=== PATIENT | female | born 1975 | race African-American/Black ===

== ENCOUNTER 2020-03-10 13:41 | Emergency (ER) | payer OTHER ==
[~2020-03-10] VITALS: Ht 165.1 cm; Wt 63.5 kg
[2020-03-10] MEDS ORDERED: SODIUM CHLORIDE 0.9% 1,000 ML IV ONE ×2 (15:00→16:15)
[2020-03-10] MEDS ORDERED: cloNIDine HCL 0.1 MG TAB PO ONE (15:00)
[2020-03-10 15:24] LABS: Urine Bacteria NONE SEEN /hpf (None Seen); Urine Blood Negative /uL (Negative); Urine Specific Gravity 1.035 (1.001-1.035); Urine WBC <1 /hpf (0 - 5)
[2020-03-10 15:33] LABS: Basophils # (auto) 0.1 10 ^3/uL (0-0.2); Eosinophils # (auto) 0.1 10 ^3/uL (0-0.8); Eosinophils % (auto) 1.7 % (0.0-7.0); Hematocrit 41.2 % (36.0-46.0); Lymphocytes # (auto) 1.8 10 ^3/uL (0.4-5.4); Monocytes # (auto) 0.3 10 ^3/uL (0-1.3); Nucleated Red Blood Cells % 0.2 %
[2020-03-10 15:35] LABS: Basophils % (auto) 1.1 % (0.0-2.0); Hemoglobin 13.7 g/dL (12.2-16.2); Lymphocytes % (auto) 33.8 % (10.0-50.0); Mean Corpuscular Hgb Conc. 33.4 g/dL (32.0-36.0); Mean Corpuscular Volume 77.8 fL (80.0-100.0); Neutrophils # (auto) 3.1 10 ^3/uL (1.6-8.6); Neutrophils % (auto) 57.4 % (37.0-80.0); Platelet Count (auto) 204 10^3/uL (140-450); Red Blood Cells 5.29 10^6/uL (4.0-5.20); Red Cell Distribution Width 12.6 % (11.8-14.3); White Blood Cell 5.4 10^3/uL (4.4-10.8)
[2020-03-10 15:49] LABS: Albumin 3.6 g/dL (3.4-5.0); Calcium 8.8 mg/dL (8.5-10.1); Potassium 3.8 mmol/L (3.5-5.1)
[2020-03-10 15:52] LABS: BUN/Creatinine Ratio 14.7; Bilirubin, Total 0.3 mg/dL (0.2-1.0); Total Protein 7.9 g/dL (6.4-8.2)
[2020-03-10] MEDS ORDERED: InsuLIN REG 1unit/0.01ml Soln (100units/ml) IV ONE (16:00)
[2020-03-10] MEDS ORDERED: POTASSIUM CHL 20 Meq TABLET PO ONE (16:00)
[2020-03-10 16:49] VITALS: BP 164/100
== END 2020-03-10 17:43 | disposition home or self-care (01) ==
LOC: ER 13:41
DX: M54.42 Lumbago with sciatica, left side (principal); E11.65 Type 2 diabetes mellitus with hyperglycemia; I10 Essential (primary) hypertension
CPT/HCPCS: 36415; 80053; 81001; 81025; 85025; 96361; 96374; 99283; J1815

== ENCOUNTER 2020-05-05 14:41 | Inpatient (IN) | payer OTHER ==
[~2020-05-05] VITALS: Ht 167.6 cm; Wt 68.5 kg
[2020-05-05] MEDS ORDERED: cloNIDine HCL 0.1 MG TAB PO ONE (15:30)
[2020-05-05 15:50] LABS: Basophils # (auto) 0.1 10 ^3/uL (0-0.2); Eosinophils % (auto) 0.5 % (0.0-7.0); Hemoglobin 14.7 g/dL (12.2-16.2); Lymphocytes # (auto) 1.2 10 ^3/uL (0.4-5.4); Nucleated Red Blood Cells % 0.2 %
[2020-05-05 15:52] LABS: Basophils % (auto) 0.7 % (0.0-2.0); Eosinophils # (auto) 0 10 ^3/uL (0-0.8); Hematocrit 45.4 % (36.0-46.0); Lymphocytes % (auto) 11.6 % (10.0-50.0); Mean Corpuscular Hemoglobin 25.3 pg (28.0-32.0); Mean Corpuscular Hgb Conc. 32.3 g/dL (32.0-36.0); Mean Corpuscular Volume 78.2 fL (80.0-100.0); Monocytes # (auto) 0.4 10 ^3/uL (0-1.3); Monocytes % (auto) 3.5 % (0.0-12.0); Neutrophils # (auto) 8.7 10 ^3/uL (1.6-8.6); Neutrophils % (auto) 83.7 % (37.0-80.0); Platelet Count (auto) 188 10^3/uL (140-450); Red Blood Cells 5.81 10^6/uL (4.0-5.20); Red Cell Distribution Width 13.2 % (11.8-14.3); White Blood Cell 10.4 10^3/uL (4.4-10.8)
[2020-05-05 16:11] LABS: Albumin 4.3 g/dL (3.4-5.0); Anion Gap 4 (5-15); Blood Urea Nitrogen 13 mg/dL (7-18); Calcium 9.2 mg/dL (8.5-10.1); Carbon Dioxide 28 mmol/L (21-32); Chloride 100 mmol/L (98-107); Glucose 323 mg/dL (74-106); Potassium 5.2 mmol/L (3.5-5.1); Sodium 132 mmol/L (136-145)
[2020-05-05 16:16] LABS: Alanine Aminotransferase 29 U/L (13-56); Alkaline Phosphatase 123 U/L (45-117); Aspartate Aminotransferase 57 U/L (15-37); BUN/Creatinine Ratio 11.4; Bilirubin, Total 0.5 mg/dL (0.2-1.0); GFR African American 67 mL/min; GFR Non-African American 56 mL/min; Total Protein 9.3 g/dL (6.4-8.2)
[2020-05-05] MEDS ORDERED: CALCIUM GLUC 4.65meq/50ml D5AE 50 ML IV ONE (18:45)
[2020-05-05] MEDS ORDERED: SODIUM ZIRCONIUM CYCL 10 GM PAK PO ONE (18:45)
[2020-05-05] MEDS ORDERED: SODIUM BICARBONATE 8.4% INJ 50ML SYRINGE IV ONE (18:45)
[2020-05-05 19:19] LABS: Urine Specific Gravity 1.031 (1.001-1.035)
[2020-05-05 19:20] LABS: Urine Bacteria NONE SEEN /hpf (None Seen); Urine Blood Negative /uL (Negative)
[2020-05-05 19:30] LABS: Urine WBC None Seen /hpf (0 - 5)
[2020-05-05] MEDS ORDERED: MORPHINE SULF INJ 2 MG/ML SYRINGE 1ML IV PRN (19:30)
[2020-05-05] MEDS ORDERED: PROMETHAZINE HCL 25 MG/ML 1ML IV PRN (19:30)
[2020-05-05] MEDS ORDERED: DEXTROSE (50%) 50ML SYRG IV PRN (19:30)
[2020-05-05] MEDS ORDERED: amLODIPine BESYLATE 5 MG TAB PO ONE (19:30)
[2020-05-05] MEDS ORDERED: traMADol HCL 50 MG TAB PO PRN (19:30)
[2020-05-05] MEDS ORDERED: LABETALOL HCL 5 MG/ML ML 20ML VIAL IV PRN (19:30)
[2020-05-05] MEDS ORDERED: NITROGLYCERIN 0.4 MG SL TAB SL PRN (19:30)
[2020-05-05] MEDS ORDERED: TEMAZEPAM 15 MG CAP PO PRN (19:30)
[2020-05-05] MEDS ORDERED: LACTULOSE 20Gm/30ML SOLN PO PRN (19:30)
[2020-05-05] MEDS ORDERED: ACETAMINOPHEN 500 MG TAB PO PRN (19:30)
[2020-05-05 19:59] LABS: CRP High Sensitivity 0.52 mg/dL (< 0.3)
[2020-05-05 20:22] LABS: Alcohol, Urine < 3.0 mg/dL (0-10); Amphetamine Screen, Urine NEGATIVE (NEGATIVE); Barbiturate Scree,Urine NEGATIVE (NEGATIVE); Benzodiazephine Screen, Urine NEGATIVE (NEGATIVE); Cannabinoid Screen, Urine NEGATIVE (NEGATIVE); Cocaine Screen, Urine NEGATIVE (NEGATIVE); Opiate Scree,Urine NEGATIVE (NEGATIVE); Phencyclidine Screen, Urine NEGATIVE (NEGATIVE)
[2020-05-05] MEDS: ACCU-CHEK COMFORT CURVE STRIP VI SCH ×2 (22:00→23:28)
[2020-05-05] MEDS ORDERED: ATORVASTATIN 20 MG TAB PO SCH (22:00)
[2020-05-05] MEDS: InsuLIN REG 1unit/0.01ml Soln (100units/ml) SC SCH ×2 (22:39→23:17)
[2020-05-05 22:45] VITALS: BP 149/89
[2020-05-05 23:03] VITALS: BP 144/89
[2020-05-05] MEDS: METOPROLOL TARTRATE 25 MG TAB PO SCH (23:10)
[2020-05-05] MEDS ORDERED: INSULIN LANTUS (GLARGINE) 1 /0.01ml (100units/ml) SC ONE (23:15)
[2020-05-05] MEDS ORDERED: LISI-646 PO (23:32)
[2020-05-05] MEDS ORDERED: METF-489 PO (23:32)
[2020-05-06] MEDS: ACCU-CHEK COMFORT CURVE STRIP VI SCH ×5 (03:59→20:00)
[2020-05-06] MEDS: InsuLIN REG 1unit/0.01ml Soln (100units/ml) SC SCH ×5 (03:59→20:00)
[2020-05-06] MEDS: MORPHINE SULF INJ 2 MG/ML SYRINGE 1ML IV PRN ×2 (04:11→08:35)
[2020-05-06 04:43] VITALS: BP 132/69
[2020-05-06 06:20] LABS: Albumin 3.8 g/dL (3.4-5.0); Anion Gap 7 (5-15); Blood Urea Nitrogen 17 mg/dL (7-18); Calcium 8.9 mg/dL (8.5-10.1); Carbon Dioxide 30 mmol/L (21-32); Chloride 100 mmol/L (98-107); Glucose 139 mg/dL (74-106); Sodium 137 mmol/L (136-145)
[2020-05-06 06:28] LABS: Alanine Aminotransferase 22 U/L (13-56); Alkaline Phosphatase 104 U/L (45-117); Aspartate Aminotransferase 10 U/L (15-37); BUN/Creatinine Ratio 16.2; Bilirubin, Total 0.4 mg/dL (0.2-1.0); Cholesterol 189 mg/dL (< 200); GFR African American 74 mL/min; GFR Non-African American 61 mL/min; HDL Cholesterol 58 mg/dL (40-59); LDL Cholesterol 121 mg/dL (< 100); Total Protein 7.7 g/dL (6.4-8.2); Triglycerides 133 mg/dL (< 150)
[2020-05-06 06:32] LABS: Potassium 2.6 mmol/L (3.5-5.1)
[2020-05-06] MEDS: POTASSIUM CHL 20MEQ/100ML 100 ML IV SCH ×2 (06:53→09:46)
[2020-05-06 09:00] VITALS: BP 152/88
[2020-05-06] MEDS: METOPROLOL TARTRATE 25 MG TAB PO SCH (09:46)
[2020-05-06] MEDS ORDERED: ENALAPRIL MALEATE 10 MG TAB PO SCH (10:00)
[2020-05-06] MEDS ORDERED: INSULIN LANTUS (GLARGINE) 1 /0.01ml (100units/ml) SC SCH ×2 (10:00→22:00)
[2020-05-06] MEDS ORDERED: ASPirin 81 mg TAB PO SCH (10:00)
[2020-05-06] MEDS ORDERED: amLODIPine BESYLATE 5 MG TAB PO SCH (10:00)
[2020-05-06] MEDS ORDERED: ENOXAPARIN SOD 40 MG/0.4 ML SYRINGE SC SCH (10:00)
[2020-05-06 13:00] VITALS: BP 142/90
[2020-05-06 14:16] LABS: Magnesium 2.3 mg/dL (1.6-2.6); Potassium 3.7 mmol/L (3.5-5.1)
[2020-05-06 16:41] VITALS: BP 148/85
[2020-05-06] MEDS ORDERED: METF-489 PO (18:36)
[2020-05-06] MEDS ORDERED: POTA10TA32 PO (18:36)
[2020-05-06] MEDS ORDERED: AML5T PO (18:36)
[2020-05-06] MEDS ORDERED: MET25T PO (18:36)
[2020-05-06] MEDS ORDERED: ASPI81CH43 PO (18:36)
[2020-05-06 19:39] VITALS: BP 126/73
[2020-05-06 20:00] VITALS: BP 126/73
[2020-05-07] MEDS ORDERED: METF-489 PO (12:01)
== END 2020-05-06 21:45 | disposition home or self-care (01) | DRG 199 ==
LOC: ER 14:41 → TELE 14:42 → TELE-WESTW 22:53
PROVIDERS: ADMIT Internal Medicine; ATTEND Internal Medicine
DX: I16.0 Hypertensive urgency (principal); I16.1 Hypertensive emergency; E11.65 Type 2 diabetes mellitus with hyperglycemia; E78.5 Hyperlipidemia, unspecified; E87.1 Hypo-osmolality and hyponatremia; E87.5 Hyperkalemia; E87.6 Hypokalemia; I10 Essential (primary) hypertension; Z79.899 Other long term (current) drug therapy; Z82.49 Family history of ischemic heart disease and other diseases of the circulatory system; Z83.3 Family history of diabetes mellitus; Z86.73 Personal history of transient ischemic attack (TIA), and cerebral infarction without residual deficits; Z91.19 Patient's noncompliance with other medical treatment and regimen; Z79.84 Long term (current) use of oral hypoglycemic drugs; Z88.5 Allergy status to narcotic agent; I07.1 Rheumatic tricuspid insufficiency
CPT/HCPCS: 36415; 70450; 71045; 80053; 80061; 80307; 81001; 82550; 82962; 83036; 83735; 83880; 84132; 84443; 84484; 85025; 85652; 86141; 93005; 93306; 93886; G0378; J0610; J1815; J3480

== ENCOUNTER 2024-03-11 09:50 | Inpatient (IN) | payer MEDICAID, OTHER ==
[~2024-03-11] VITALS: Ht 157.5 cm; Wt 65.6 kg
[~2024-03-11 09:50] MED LIST: AML5T PO; ASPI81CH43 PO; LISI20TA56 PO; MET25T PO; METF-489 PO
[2024-03-11 10:07] VITALS: PULSE 93; RESP 11; O2SAT 93
[2024-03-11 10:22] LABS: Basophils # (auto) 0.1 10 ^3/uL (0-0.2); Basophils % (auto) 1.1 % (0.0-2.0); Eosinophils # (auto) 0.2 10 ^3/uL (0-0.8); Hemoglobin 13.5 g/dL (12.2-16.2); Red Cell Distribution Width 13.7 % (11.8-14.3)
[2024-03-11 10:25] LABS: Eosinophils % (auto) 2.9 % (0.0-7.0); Hematocrit 40.5 % (36.0-46.0); Lymphocytes # (auto) 3.8 10 ^3/uL (0.4-5.4); Lymphocytes % (auto) 48.4 % (10.0-50.0); Mean Corpuscular Hemoglobin 26.8 pg (28.0-32.0); Mean Corpuscular Hgb Conc. 33.4 g/dL (32.0-36.0); Mean Corpuscular Volume 80.1 fL (80.0-100.0); Monocytes # (auto) 0.6 10 ^3/uL (0-1.3); Monocytes % (auto) 7.7 % (0.0-12.0); Neutrophils # (auto) 3.2 10 ^3/uL (1.6-8.6); Neutrophils % (auto) 39.9 % (37.0-80.0); Nucleated Red Blood Cells % 0.2 %; Red Blood Cells 5.06 10^6/uL (4.0-5.20); White Blood Cell 7.9 10^3/uL (4.4-10.8)
[2024-03-11 10:36] LABS: Alanine Aminotransferase 26 U/L (7-40); Albumin 4.5 g/dL (3.2-4.8); Alkaline Phosphatase 129 U/L (46-116); Anion Gap 10 (5-15); Aspartate Aminotransferase 20 U/L (13-40); BUN/Creatinine Ratio 15.2 (10.0-20.0); Blood Urea Nitrogen 24 mg/dL (9-23); Calcium 9.8 mg/dL (8.7-10.4); Carbon Dioxide 26 mmol/L (20-30); Chloride 102 mmol/L (98-107); Glucose 324 mg/dL (74-106); Magnesium 2.1 mg/dL (1.6-2.6); Potassium 3.8 mmol/L (3.5-5.1); Sodium 138 mmol/L (136-145)
[2024-03-11 10:37] LABS: Bilirubin, Total 0.6 mg/dL (0.2-1.0); Total Protein 7.9 g/dL (5.7-8.2)
[2024-03-11] MEDS: IOHEXOL 350 MG/ML 100ML IJ ONE (10:37)
[2024-03-11] MEDS: hydrALAZINE HCL 20 MG/ML VL IV ONE ×2 (10:39→11:53)
[2024-03-11 10:40] LABS: INR 1.03 (0.9-1.15); Partial Thromboplastin Time 24.5 SEC (24.5-34.5); Prothrombin Time 10.9 sec (9.3-11.8)
[2024-03-11] MEDS: LISINOPRIL 5 MG TAB PO ONE (10:40)
[2024-03-11 11:17] LABS: Triglycerides 117 mg/dL (< 150)
[2024-03-11 11:18] LABS: LDL Cholesterol 167 mg/dL (< 100)
[2024-03-11 11:19] LABS: Cholesterol 255 mg/dL (< 200); HDL Cholesterol 61 mg/dL (40-59)
[2024-03-11 11:20] LABS: Giant Platelets Few; Platelet Estimate Adequate
[2024-03-11 11:34] LABS: Urine Bacteria None Seen /hpf (None Seen)
[2024-03-11] MEDS: CLOPIDOGREL BISULFATE 75 MG TAB PO ONE (11:51)
[2024-03-11] MEDS: ASPirin 325 MG TAB PO ONE (11:51)
[2024-03-11] MEDS: cloNIDine HCL 0.1 MG TAB PO ONE (11:52)
[2024-03-11 11:55] LABS: Urine Blood Negative /uL (Negative); Urine Clarity Clear (Clear); Urine Color Light-Yellow (Yellow); Urine Protein, UAD 1+ (Negative); Urine Specific Gravity 1.022 (1.001-1.035); Urine Urobilinogen Normal (Negative); Urine WBC 1 /hpf (0 - 5)
[2024-03-11] MEDS ORDERED: ACETAMINOPHEN 325 MG TAB PO PRN (12:00)
[2024-03-11] MEDS ORDERED: MORPHINE SULFATE INJ 2 MG/ml SYRG IV PRN (12:00)
[2024-03-11] MEDS ORDERED: NITROGLYCERIN 0.4 MG SL TAB SL PRN (12:00)
[2024-03-11] MEDS ORDERED: DEXTROSE (50%) 50ML SYRG IV PRN (12:15)
[2024-03-11] MEDS: SODIUM CHLORIDE 0.9% 1,000 ML IV SCH (13:35)
[2024-03-11] MEDS: ACCU-CHEK COMFORT CURVE STRIP VI SCH (17:03)
[2024-03-11] MEDS: InsuLIN REG 1unit/0.01ml Soln (100units/ml) SC SCH (17:04)
[2024-03-11 17:41] VITALS: BP 168/92; PULSE 98; RESP 18; TEMP 98.5; O2SAT 94
[2024-03-11 18:50] VITALS: RESP 17; O2SAT 99
[2024-03-11 20:00] VITALS: PULSE 100; PULSE 98; RESP 20; O2SAT 96
[2024-03-11 21:00] VITALS: BP 187/105; PULSE 100; RESP 20; TEMP 98.4; O2SAT 96
[2024-03-11] MEDS: METOPROLOL TARTRATE 25 MG TAB PO SCH (21:26)
[2024-03-11] MEDS: CLOPIDOGREL BISULFATE 75 MG TAB PO SCH (23:45)
[2024-03-11] MEDS ORDERED: LABETALOL HCL 20 MG/4 ML VL IV PRN (23:45)
[2024-03-12] VITALS (9 sets, daily range): BP systolic 177–203; BP diastolic 60–103; PULSE 64–97; RESP 14–20; TEMP 97.4–99.3; O2SAT 94–99
[2024-03-12 00:23] LABS: Amphetamine Screen, Urine Neg (NEGATIVE); Barbiturate Scree,Urine Neg (NEGATIVE); Benzodiazephine Screen, Urine Neg (NEGATIVE); Cannabinoid Screen, Urine Neg (NEGATIVE); Cocaine Screen, Urine Neg (NEGATIVE); Opiate Scree,Urine Neg (NEGATIVE); Phencyclidine Screen, Urine Neg (NEGATIVE)
[2024-03-12 06:33] LABS: Alanine Aminotransferase 19 U/L (7-40); Albumin 3.8 g/dL (3.2-4.8); Alkaline Phosphatase 108 U/L (46-116); Anion Gap 10 (5-15); Aspartate Aminotransferase 14 U/L (13-40); BUN/Creatinine Ratio 8.5 (10.0-20.0); Blood Urea Nitrogen 14 mg/dL (9-23); Calcium 9.5 mg/dL (8.7-10.4); Carbon Dioxide 25 mmol/L (20-30); Chloride 104 mmol/L (98-107); Glucose 101 mg/dL (74-106); Potassium 3.2 mmol/L (3.5-5.1); Sodium 139 mmol/L (136-145)
[2024-03-12 06:34] LABS: Bilirubin, Total 0.7 mg/dL (0.2-1.0); Total Protein 7.3 g/dL (5.7-8.2)
[2024-03-12 07:57] LABS: Basophils # (auto) 0.1 10 ^3/uL (0-0.2); Basophils % (auto) 0.7 % (0.0-2.0); Eosinophils # (auto) 0.1 10 ^3/uL (0-0.8); Eosinophils % (auto) 0.5 % (0.0-7.0); Hematocrit 40.4 % (36.0-46.0); Hemoglobin 13.5 g/dL (12.2-16.2); Lymphocytes # (auto) 2.7 10 ^3/uL (0.4-5.4); Lymphocytes % (auto) 25.4 % (10.0-50.0); Mean Corpuscular Hemoglobin 26.8 pg (28.0-32.0); Mean Corpuscular Hgb Conc. 33.4 g/dL (32.0-36.0); Mean Corpuscular Volume 80.2 fL (80.0-100.0); Monocytes # (auto) 0.5 10 ^3/uL (0-1.3); Monocytes % (auto) 5.1 % (0.0-12.0); Neutrophils # (auto) 7.1 10 ^3/uL (1.6-8.6); Neutrophils % (auto) 68.3 % (37.0-80.0); Red Blood Cells 5.04 10^6/uL (4.0-5.20); Red Cell Distribution Width 13.7 % (11.8-14.3); White Blood Cell 10.4 10^3/uL (4.4-10.8)
[2024-03-12] MEDS: LISINOPRIL 20 MG TAB PO SCH (09:00)
[2024-03-12] MEDS: ASPirin 81 mg TAB PO SCH (09:00)
[2024-03-12] MEDS: amLODIPine BESYLATE 5 MG TAB PO SCH (09:01)
[2024-03-12] MEDS: ENOXAPARIN SOD 40 MG/0.4 ML SYRINGE SC SCH (09:02)
[2024-03-12 09:10] LABS: Magnesium 1.9 mg/dL (1.6-2.6)
[2024-03-12] MEDS: POTASSIUM EFFERVESENT TAB 25 MEQ PO ONE (09:45)
[2024-03-12] MEDS ORDERED: ASPirin 81 mg TAB PO SCH (10:00)
[2024-03-12] MEDS ORDERED: CLOPIDOGREL BISULFATE 75 MG TAB PO SCH (10:00)
[2024-03-12] MEDS: LABETALOL HCL 5 MG/ML ML 20ML VIAL IV PRN (18:22)
[2024-03-12] MEDS: ATORVASTATIN 20 MG TAB PO SCH (22:34)
[2024-03-13] VITALS (8 sets, daily range): BP systolic 160–193; BP diastolic 89–115; PULSE 69–83; RESP 18–20; TEMP 97.8–99.2; O2SAT 95–97
[2024-03-13 06:20] LABS: Basophils # (auto) 0.1 10 ^3/uL (0-0.2); Basophils % (auto) 0.9 % (0.0-2.0); Eosinophils # (auto) 0.2 10 ^3/uL (0-0.8); Eosinophils % (auto) 3.3 % (0.0-7.0); Hematocrit 38.8 % (36.0-46.0); Hemoglobin 13.1 g/dL (12.2-16.2); Lymphocytes # (auto) 2.6 10 ^3/uL (0.4-5.4); Lymphocytes % (auto) 38.2 % (10.0-50.0); Mean Corpuscular Hemoglobin 27.1 pg (28.0-32.0); Mean Corpuscular Hgb Conc. 33.8 g/dL (32.0-36.0); Mean Corpuscular Volume 80.3 fL (80.0-100.0); Monocytes # (auto) 0.5 10 ^3/uL (0-1.3); Monocytes % (auto) 7.5 % (0.0-12.0); Neutrophils # (auto) 3.4 10 ^3/uL (1.6-8.6); Neutrophils % (auto) 50.1 % (37.0-80.0); Nucleated Red Blood Cells % 0.2 %; Red Blood Cells 4.83 10^6/uL (4.0-5.20); Red Cell Distribution Width 13.8 % (11.8-14.3); White Blood Cell 6.9 10^3/uL (4.4-10.8)
[2024-03-13 06:33] LABS: Calcium 9.4 mg/dL (8.7-10.4); Chloride 102 mmol/L (98-107); Potassium 3.3 mmol/L (3.5-5.1); Sodium 140 mmol/L (136-145)
[2024-03-13 06:34] LABS: Anion Gap 12 (5-15); Carbon Dioxide 26 mmol/L (20-30)
[2024-03-13 06:39] LABS: Glucose 142 mg/dL (74-106)
[2024-03-13 06:40] LABS: BUN/Creatinine Ratio 12.4 (10.0-20.0); Blood Urea Nitrogen 22 mg/dL (9-23)
[2024-03-13] MEDS ORDERED: LABETALOL HCL 5 MG/ML ML 20ML VIAL IV PRN ×2 (09:30→10:00)
[2024-03-13] MEDS: amLODIPine BESYLATE 5 MG TAB PO SCH (09:47)
[2024-03-13] MEDS: POTASSIUM EFFERVESENT TAB 25 MEQ PO ONE (12:10)
[2024-03-13] MEDS: NIFEdipine ER 30 MG TAB PO ONE (15:31)
[2024-03-14] VITALS (8 sets, daily range): BP systolic 0–172; BP diastolic 84–98; PULSE 79–92; RESP 16–20; TEMP 97.9–98.5; O2SAT 96–99
[2024-03-14] MEDS: hydrALAZINE HCL 20 MG/ML VL IV PRN (02:14)
[2024-03-14 07:14] LABS: Anion Gap 10 (5-15); Carbon Dioxide 25 mmol/L (20-30); Chloride 101 mmol/L (98-107); Potassium 3.4 mmol/L (3.5-5.1); Sodium 136 mmol/L (136-145)
[2024-03-14 07:16] LABS: Calcium 9.7 mg/dL (8.7-10.4)
[2024-03-14 07:20] LABS: Glucose 191 mg/dL (74-106)
[2024-03-14 07:21] LABS: BUN/Creatinine Ratio 12.2 (10.0-20.0); Blood Urea Nitrogen 23 mg/dL (9-23)
[2024-03-14] MEDS: NIFEdipine ER 30 MG TAB PO SCH (10:03)
[2024-03-14] MEDS ORDERED: DEXTROSE (50%) 50ML SYRG IV PRN (11:30)
[2024-03-14] MEDS: ACCU-CHEK COMFORT CURVE STRIP VI SCH (12:03)
[2024-03-14] MEDS: InsuLIN REG 1unit/0.01ml Soln (100units/ml) SC SCH (12:21)
[2024-03-14] MEDS: POTASSIUM EFFERVESENT TAB 25 MEQ PO ONE (12:22)
[2024-03-14] MEDS: hydrALAZINE HCL 25 MG TAB PO ONE (14:15)
[2024-03-14] MEDS: hydrALAZINE HCL 25 MG TAB PO SCH (21:12)
[2024-03-15] VITALS (8 sets, daily range): BP systolic 0–161; BP diastolic 10–93; PULSE 77–99; RESP 16–20; TEMP 97.9–98.7; O2SAT 94–98
[2024-03-15 06:07] LABS: Anion Gap 11 (5-15); Carbon Dioxide 25 mmol/L (20-30); Chloride 101 mmol/L (98-107); Potassium 3.3 mmol/L (3.5-5.1); Sodium 137 mmol/L (136-145)
[2024-03-15 06:09] LABS: Calcium 9.4 mg/dL (8.7-10.4)
[2024-03-15 06:13] LABS: Glucose 114 mg/dL (74-106)
[2024-03-15 06:14] LABS: BUN/Creatinine Ratio 12.5 (10.0-20.0); Blood Urea Nitrogen 24 mg/dL (9-23)
[2024-03-15] MEDS: POTASSIUM EFFERVESENT TAB 25 MEQ PO ONE (09:58)
[2024-03-15] MEDS: NIFEdipine ER 30 MG TAB PO SCH (09:59)
[2024-03-15] MEDS: SODIUM CHLORIDE 0.9% 1,000 ML IV ONE (15:15)
[2024-03-15] MEDS ORDERED: DEXTROSE (50%) 50ML SYRG IV PRN (15:15)
[2024-03-15] MEDS: ACCU-CHEK COMFORT CURVE STRIP VI SCH (17:41)
[2024-03-15] MEDS: INSULIN LANTUS (GLARGINE) 1 /0.01ml (100units/ml) SC ONE (17:42)
[2024-03-15] MEDS: InsuLIN REG 1unit/0.01ml Soln (100units/ml) SC SCH (17:42)
[2024-03-16] VITALS (8 sets, daily range): BP systolic 0–168; BP diastolic 65–92; PULSE 22–115; RESP 15–22; TEMP 98.1–98.7; O2SAT 95–98
[2024-03-16 06:14] LABS: Anion Gap 11 (5-15); Carbon Dioxide 24 mmol/L (20-30); Chloride 103 mmol/L (98-107); Potassium 3.9 mmol/L (3.5-5.1); Sodium 138 mmol/L (136-145)
[2024-03-16 06:16] LABS: Calcium 9.3 mg/dL (8.7-10.4)
[2024-03-16 06:20] LABS: Glucose 107 mg/dL (74-106)
[2024-03-16 06:21] LABS: BUN/Creatinine Ratio 13.2 (10.0-20.0); Blood Urea Nitrogen 26 mg/dL (9-23)
[2024-03-16] MEDS: INSULIN LANTUS (GLARGINE) 1 /0.01ml (100units/ml) SC SCH (10:07)
[2024-03-16] MEDS ORDERED: hydrALAZINE HCL 25 MG TAB PO PRN (17:30)
[2024-03-16] MEDS ORDERED: hydrALAZINE HCL 20 MG/ML VL IV PRN (17:45)
[2024-03-16] MEDS: SODIUM CHLORIDE 0.9% 1,000 ML IV ONE (18:20)
[2024-03-16] MEDS ORDERED: LABETALOL HCL 5 MG/ML 4ML SYRINGE IV PRN (18:45)
[2024-03-16 19:08] LABS: Creatinine, Urine 35.49 mg/dL (30.0-125.0)
[2024-03-16] MEDS: LABETALOL HCL 20 MG/4 ML VL IV PRN (19:23)
[2024-03-16] MEDS: hydrALAZINE HCL 25 MG TAB PO SCH (21:20)
[2024-03-16] MEDS: METOPROLOL TARTRATE 50 MG TAB PO SCH (21:21)
[2024-03-17] VITALS (11 sets, daily range): BP systolic 142–178; BP diastolic 82–104; PULSE 83–96; RESP 16–18; TEMP 97.1–99.1; O2SAT 97–100
[2024-03-17 06:36] LABS: Basophils # (auto) 0 10 ^3/uL (0-0.2); Eosinophils # (auto) 0 10 ^3/uL (0-0.8); Hematocrit 36.9 % (36.0-46.0); Hemoglobin 12.1 g/dL (12.2-16.2); Lymphocytes # (auto) 1.2 10 ^3/uL (0.4-5.4); Mean Corpuscular Hemoglobin 26.4 pg (28.0-32.0); Mean Corpuscular Hgb Conc. 32.8 g/dL (32.0-36.0); Monocytes # (auto) 0.3 10 ^3/uL (0-1.3); Nucleated Red Blood Cells % 0.1 %; Red Cell Distribution Width 13.5 % (11.8-14.3); White Blood Cell 7.3 10^3/uL (4.4-10.8)
[2024-03-17 06:38] LABS: Basophils % (auto) 0.5 % (0.0-2.0); Eosinophils % (auto) 0.5 % (0.0-7.0); Lymphocytes % (auto) 15.9 % (10.0-50.0); Mean Corpuscular Volume 80.7 fL (80.0-100.0); Neutrophils # (auto) 5.8 10 ^3/uL (1.6-8.6); Neutrophils % (auto) 79.1 % (37.0-80.0); Red Blood Cells 4.57 10^6/uL (4.0-5.20)
[2024-03-17 07:00] LABS: Alanine Aminotransferase 32 U/L (7-40); Albumin 3.5 g/dL (3.2-4.8); Alkaline Phosphatase 89 U/L (46-116); Anion Gap 8 (5-15); Aspartate Aminotransferase 34 U/L (13-40); BUN/Creatinine Ratio 15.9 (10.0-20.0); Bilirubin, Total 0.5 mg/dL (0.2-1.0); Blood Urea Nitrogen 30 mg/dL (9-23); Carbon Dioxide 24 mmol/L (20-30); Chloride 107 mmol/L (98-107); Glucose 255 mg/dL (74-106); Potassium 4.1 mmol/L (3.5-5.1); Sodium 139 mmol/L (136-145); Total Protein 6.4 g/dL (5.7-8.2)
[2024-03-17] MEDS: ENOXAPARIN SOD 30 MG/0.3 ML SYRINGE SC SCH (09:57)
[2024-03-17] MEDS: hydrALAZINE HCL 25 MG TAB PO SCH (12:35)
[2024-03-17] MEDS: hydrALAZINE HCL 20 MG/ML VL IV ONE (15:04)
[2024-03-17] MEDS: LABETALOL HCL 20 MG/4 ML VL IV ONE (15:05)
[2024-03-17] MEDS: ISOSORBIDE MONONITRATE 20 MG TAB PO ONE (15:06)
[2024-03-17] MEDS: DOCUSATE SOD 100 MG CAP PO ONE (15:06)
[2024-03-17] MEDS ORDERED: ATOR20TA50 PO (17:06)
[2024-03-17] MEDS ORDERED: MET50T PO (17:06)
[2024-03-17] MEDS ORDERED: HYDR25TA87 PO (17:06)
[2024-03-17] MEDS ORDERED: ISO20T PO (17:06)
[2024-03-17] MEDS ORDERED: CLOP75TA70 PO (17:06)
[2024-03-17] MEDS ORDERED: NIFE1TAB31 PO (17:06)
[2024-03-17] MEDS ORDERED: ASPI-325 PO (17:06)
[2024-03-17] MEDS ORDERED: BLOO1KIT54 XX (17:56)
[2024-03-17] MEDS ORDERED: GLIP5TAB21 PO (17:56)
[2024-03-17] MEDS ORDERED: METF-489 PO (17:56)
[2024-03-17] MEDS ORDERED: BLOO-169 XX (17:56)
[2024-03-17] MEDS ORDERED: ISOS1TAB28 PO (19:59)
[2024-03-17] MEDS: ISOSORBIDE MONONITRATE 20 MG TAB PO SCH (20:58)
[2024-03-17] MEDS: DOCUSATE SOD 100 MG CAP PO SCH (20:59)
[2024-03-18] MEDS ORDERED: ENOXAPARIN SOD 40 MG/0.4 ML SYRINGE SC SCH (10:00)
== END 2024-03-17 21:25 | disposition home or self-care (01) | DRG 45 ==
LOC: ER 09:50 → TELE 12:10 → TELE-CENTR 17:30
PROVIDERS: ADMIT Internal Medicine Pulmonary Disease; ATTEND Emergency Medicine
DX: I63.9 Cerebral infarction, unspecified (principal); N17.0 Acute kidney failure with tubular necrosis; I50.31 Acute diastolic (congestive) heart failure; E11.319 Type 2 diabetes mellitus with unspecified diabetic retinopathy without macular edema; I13.0 Hypertensive heart and chronic kidney disease with heart failure and stage 1 through stage 4 chronic kidney disease, or unspecified chronic kidney disease; G81.94 Hemiplegia, unspecified affecting left nondominant side; R47.1 Dysarthria and anarthria; R29.810 Facial weakness; E78.5 Hyperlipidemia, unspecified; R29.701 NIHSS score 1; E11.22 Type 2 diabetes mellitus with diabetic chronic kidney disease; N18.9 Chronic kidney disease, unspecified; I16.1 Hypertensive emergency; Z91.199 Patient's noncompliance with other medical treatment and regimen due to unspecified reason; Z88.5 Allergy status to narcotic agent; Z79.899 Other long term (current) drug therapy; Z79.82 Long term (current) use of aspirin
CPT/HCPCS: 36415; 70450; 70496; 70551; 71045; 80048; 80053; 80061; 80307; 81001; 82570; 82607; 82962; 83036; 83735; 83880; 83930; 83935; 84300; 84443; 84484; 85025; 85610; 85730; 86850; 86900; 86901; 92523; 92610; 93005; 93306; 93886; 96361; 96374; 96376; 97110; 97116; 97163; 97530; G0378; J1815; J3490